=== PATIENT | male | born 1950 | race Caucasian/White ===

== ENCOUNTER 2019-02-26 22:03 | Emergency (ER) | payer OTHER, MEDICARE ==
[~2019-02-26] VITALS: Ht 177.8 cm; Wt 108.9 kg
[2019-02-27 00:40] LABS: Calcium, Ionized (POC) 1.18 mmol/L (1.10-1.46); Chloride (POC) 105 mmol/L (98-108); Creatinine (POC) 1.1 mg/dL (0.8-1.3); Glucose (ISTAT POC) 115 mg/dL (70-99); Hemoglobin (POC) 13.3 g/dL (13.5-17.5); Sodium (POC) 139 mmol/L (135-148); Total CO2 (POC) 20 mmol/L (21-32)
[2019-02-27] MEDS ORDERED: XARELTO15 MG PO (00:52)
== END 2019-02-27 01:06 | disposition home or self-care (01) ==
LOC: ER 22:03
PROVIDERS: Physician Assistant
DX: I82.441 Acute embolism and thrombosis of right tibial vein (principal); I82.451 Acute embolism and thrombosis of right peroneal vein; I82.811 Embolism and thrombosis of superficial veins of right lower extremity; M96.840 Postprocedural hematoma of a musculoskeletal structure following a musculoskeletal system procedure; I10 Essential (primary) hypertension; I25.2 Old myocardial infarction; Z79.02 Long term (current) use of antithrombotics/antiplatelets
CPT/HCPCS: 80047; 85014; 93971; 99284-25